=== PATIENT | female | born 1940 ===

== ENCOUNTER 2017-09-15 14:36 | Outpatient (CLI) | payer OTHER | END 2017-09-15 15:23 | disposition home or self-care (01) | LOC: RAD 14:36 | DX: M25.551 Pain in right hip (principal) ==

== ENCOUNTER → 2017-09-15 | Outpatient (CLI) | payer OTHER ==
[~2017-09-15] MED LIST: ATACAND4 MG PO; COREG CR10 MG PO; CRESTOR20 MG PO; PLAVIX75 MG PO
== END | disposition home or self-care (01) ==
LOC: LAB 14:11
DX: R70.0 Elevated erythrocyte sedimentation rate (principal); M06.4 Inflammatory polyarthropathy

== ENCOUNTER 2018-11-03 10:13 | Outpatient (CLI) | payer OTHER | END 2018-11-03 13:54 | disposition home or self-care (01) | LOC: LAB 10:13 | DX: E11.65 Type 2 diabetes mellitus with hyperglycemia (principal) ==

== ENCOUNTER 2021-08-13 10:00 | Outpatient (CLI) | payer OTHER | END 2021-08-13 10:08 | disposition home or self-care (01) | LOC: LAB 10:00 | DX: I10 Essential (primary) hypertension (principal); D64.9 Anemia, unspecified; D68.8 Other specified coagulation defects ==